=== PATIENT | female | born 1955 | race Two or more races ===

== ENCOUNTER 2016-11-16 08:59 | Outpatient (CLI) | payer MEDICAID ==
[2016-11-16] MEDS ORDERED: FLUMAZENIL 0.5 MG/5 ML MDV IVP ONE (09:07)
[2016-11-16] MEDS ORDERED: fentaNYL 100 MCG/2 ML INJ ONE (09:07)
[2016-11-16] MEDS ORDERED: NALOXONE HCL 0.4 MG/ML INJ ONE (09:07)
[2016-11-16] MEDS ORDERED: MIDAZOLAM 2 MG/2 ML VIAL ONE (09:08)
[2016-11-16] MEDS ORDERED: NA BICARBONATE 50 MEQ/50 ML VIAL ONE (09:12)
[2016-11-16] MEDS ORDERED: LIDOCAINE 1% 30 ML SDV ONE (09:13)
[2016-11-16] MEDS ORDERED: oxyCODONE IR 5 MG TAB PO PRN (11:18)
[2016-11-16] MEDS ORDERED: ONDANSETRON 4 MG/2 ML VIAL IVP PRN (11:18)
== END 2016-11-16 14:15 | disposition home or self-care (01) ==
LOC: FIMAGING 08:59
PROVIDERS: ATTEND Internal Medicine
PROC: 0FB13ZX Excision of Right Lobe Liver, Percutaneous Approach, Diagnostic (ICD-10-PCS; principal; 2016-11-16 11:07)
DX: K73.9 Chronic hepatitis, unspecified (principal); K80.20 Calculus of gallbladder without cholecystitis without obstruction; Z87.891 Personal history of nicotine dependence
CPT/HCPCS: J2250; J2310; J3010

== ENCOUNTER 2017-04-16 10:20 | Day surgery (SDC) | payer MEDICAID ==
--- NOTE | 2017-04-14 09:55 | GHP ---
[f rep st] PREOP HISTORY AND PHYSICAL DATE OF ADMISSION: 04/16/2017 PREOP DIAGNOSIS: Left anterior shoulder mass. HISTORY OF PRESENT ILLNESS: Beverly Delong is a 62-year-old woman who presented to the clinic with a left shoulder mass in 2014. She chose not to pursue excision at that time. The mass on her left a nterior shoulder is bothersome, more so with movement, but does not cause severe pain. She denies n umbness or tingling of her left upper extremity. She denies any decreased strength or impedement in range of motion. She had an ultrasound performed on 02/08/2015, which revealed an anterior left sh oulder mass measuring 4 x 2 cm. An MRI performed on 05/27/2015 showed the lipomatous mass intimatel y associated with the pectoralis muscle. Short head of the biceps and anterior medial aspect of the deltoid measuring 8.7 x 4.5 x 2.9 cm. The mass is becoming increasingly more bothersome, and she d esires excision at this time. PAST MEDICAL HISTORY: Primary biliary cirrhosis, hypothyroidism. PAST SURGICAL HISTORY: None. MEDICATIONS: None. ALLERGIES: Latex. SOCIAL HISTORY: She is a massage therapist. She is , with 2 children. She denies tobacco, alcohol or recreational drug use. FAMILY HISTORY: She reports a family history of hyperlipidemia, heart disease and hypertension. REVIEW OF SYSTEMS: 10-point review of systems is negative aside from the HPI. PHYSICAL EXAMINATION: GENERAL: Well-developed, well-nourished, woman in no acute distress. HEENT: Normocephalic, atraumatic. No hearing deficits. Pupils equal and round. No scleral icterus. Mu cous membranes moist. NECK: Trachea midline. RESPIRATORY: Clear to auscultation bilaterally. No increased work of breathing. CARDIOVASCULAR: Regular rate and rhythm. No peripheral edema. MUSC ULOSKELETAL: Normal gait. Normal nails. Firm, nonmobile mass of left anterior shoulder near axill a, nontender to palpation, 5/5 strength of left upper extremity, full range of motion. Neurovascula rly intact. SKIN: Warm and dry. PSYCH: Mood and affect normal. NEURO: Grossly intact. IMPRESSION AND PLAN: Beverly Delong is a 62-year-old woman with a left anterior shoulder mass, likel y lipoma. She desires excisional biopsy. We discussed risks of surgery, including but not limited to, heart attack, stroke, blood clots or . We discussed risks of infection, bleeding, recurren ce, damage to surrounding structures, or need for additional procedures. She understands the risks and would like to proceed. We anticipate this to be an outpatient procedure. She was additionally seen by Dr. Marla Monreal, who agrees with the above impression and plan. /[id number]/MODL
--- NOTE | 2017-04-15 19:19 | PDANEPAE ---
ANE History of Present Illness 62 year old female w/ PMHx of Primary Biliary Cirrhosis and hypothyroidism presents for excision of left shoulder mass. ANE Past Medical History - Cardiovascular History Hx Hypertension: No Hx Arrhythmias: No Hx Chest Pain: No Hx Coronary Artery / Peripheral Vascular Disease: No Hx CHF / Valvular Disease: No Hx Palpitations: No - Pulmonary History Hx COPD: No Hx Asthma/Reactive Airway Disease: No Hx Recent Upper Respiratory Infection: No Hx Oxygen in Use at Home: No Hx Sleep Apnea: Yes Sleep Apnea Screening Result - Last Documented: Positive - Neurologic History Hx Cerebrovascular Accident: No Hx Seizures: No Hx Dementia: No - Endocrine History Hx Diabetes: No Hypothyroid: Yes - Renal History Hx Renal Disorders: No - Liver History Hx Hepatic Disorders: Yes Hepatic History Comment: PRIMARY BILIARY CHOLANGITIS. GALL STONES - Neurological & Psychiatric Hx Hx Neurological and Psychiatric Disorders: No - Cancer History Hx Cancer: No - Congenital Disorder History Hx Congenital Disorders: No - GI History Hx Gastrointestinal Disorders: No Gastrointestinal History Comment: constipation - Other Health History Other Health History: NEG - Chronic Pain History Chronic Pain: No - Surgical History Prior Surgeries: LIVER BX. tubal ligation,. colonoscopy ANE Review of Systems - Exercise capacity METS (RN): 4 METS ANE Patient History - Allergies Allergies/Adverse Reactions: amoxicillin Allergy (Verified 04/16/17 11:25) latex Allergy (Verified 11/11/16 16:22) Penicillins Allergy (Verified 11/11/16 16:21) acetaminophen [From Tylenol] Adverse Reaction (Verified 04/16/17 11:26) ibuprofen Adverse Reaction (Verified 04/16/17 11:26) - Home Medications Home Medications: [place] Thyroid 04/08/17 [Last Taken 04/16/17 08:00] Herbals/Supplements -Info Only 04/08/17 [Last Taken 04/08/17] Ursodiol 04/08/17 [Last Taken 04/15/17] - Smoking Hx Smoking Status: Former smoker ANE Labs/Vital Signs - Vital Signs Height: 154.94 cm Weight: 68.039 kg ANE Physical Exam - Airway Mallampati Score: Class 2 Mouth exam: normal dental/mouth exam, dentures - Pulmonary Pulmonary: no respiratory distress - Cardiovascular Cardiovascular: regular rate and rhythym - ASA Status ASA Status: II
[2017-04-16] MEDS ORDERED: ceFAZolin 2 GM/DEXTROSE 100 ML IV ONE ×2 (10:41→11:30)
[2017-04-16] MEDS ORDERED: LR 1,000 ML IV ONE (10:59)
--- NOTE | 2017-04-16 13:07 | PDHPUP ---
History & Physical Update H&P update statement: This history and physical update is based on an assessment of the patient which was completed after admission or registration (within 24 hours), but prior to the surgery/procedure. H&P update: H&P reviewed & patient examined, no change in patient's condition since H&P completed
[2017-04-16] MEDS ORDERED: BUPIVACAINE 0.5% 30 ML SDV ONE (13:28)
[2017-04-16] MEDS ORDERED: MIDAZOLAM 2 MG/2 ML VIAL ONE (13:39)
[2017-04-16] MEDS ORDERED: MIDAZOLAM 2 MG/2 ML VIAL IVP ONE (13:41)
[2017-04-16] MEDS ORDERED: fentaNYL 100 MCG/2 ML INJ ONE ×2 (13:44→15:03)
[2017-04-16] MEDS ORDERED: PROPOFOL 200 MG/20 ML VIAL ONE (13:44)
[2017-04-16] MEDS ORDERED: LIDOCAINE 2% 100 MG/5 ML SYR ONE (13:45)
[2017-04-16] MEDS ORDERED: ROCURONIUM 50 MG/5 ML VIAL ONE (13:45)
--- NOTE | 2017-04-16 14:46 | POSTOPPROG ---
Post Op Note Date of Operation: 04/16/17 Surgeon: Marla Monreal Rn Referral: nancy Anesthesiologist: magui Anesthesia: GET(General Endotracheal) Pre-op Diagnosis: L shoulder mass Post-op Diagnosis: same Indication: 62yo F with painful growing L shoulder mass Procedure: excisional bx left shoulder mass Findings: lipomatous mass, intramuscular Inf/Abcess present in the surg proc area at time of surgery?: No Depth: Deep Incisional (Fascial) EBL: Minimal Complications: none immediately postoperatively
[2017-04-16 14:54] VITALS: PULSE 59; TEMP 97.7
[2017-04-16] MEDS ORDERED: NALOXONE HCL 0.4 MG/ML INJ IVP PRN (15:01)
[2017-04-16] MEDS ORDERED: ONDANSETRON 4 MG/2 ML VIAL IVP PRN (15:01)
[2017-04-16] MEDS ORDERED: LR 500 ML IV PRN (15:01)
[2017-04-16] MEDS: fentaNYL 100 MCG/2 ML INJ IVP PRN ×2 (15:16→16:21)
--- NOTE | 2017-04-16 15:27 | POSTANESTH ---
Post Anesthetic Evaluation Respiratory Status: Normal, Stable Level of Consciousness/Mental Status: Can Participate in Eval Pain Control: Adequate, Prn Tx Ordered Nausea/Vomiting Control: Adequate, Prn Tx Ordered
[2017-04-16 16:47] VITALS: RESP 16; O2SAT 93
[2017-04-16 17:43] VITALS: BP 81/61
--- NOTE | 2017-04-17 08:17 | GOP ---
[f rep st] OPERATIVE REPORT DATE OF OPERATION: 04/16/2017 SURGEON: Marla Monreal MD WATCH PARTS INSPECTOR: Irene Francisco, EL ANESTHESIA: General. ANESTHESIOLOGIST: Nelson Barahona MD PREOPERATIVE DIAGNOSIS: Left shoulder mass. POSTOPERATIVE DIAGNOSIS: Left shoulder mass. PROCEDURE PERFORMED: Excision of left intramuscular shoulder mass. FINDINGS: Lipomatosis mass that is intramuscular. SPECIMENS: To Pathology. ESTIMATED BLOOD LOSS: Minimal. INDICATIONS: The patient is a 62-year-old woman who has had a painful growing left shoulder mass. Preoperative imaging was obtained that showed it to be consistent with a lipoma. DESCRIPTION OF PROCEDURE: The patient was brought into the operating room, placed supine on the tab le, and general anesthesia was administered. Her left shoulder was prepped and draped in the usual sterile fashion. I made an incision over the mass. I deepened my dissection down through the subcu taneous tissues and I was able to palpate the mass and ultimately encountered it. It was intramuscu lar. I was able to excise it from the surrounding muscle. I sutured the deep layer closed with 3-0 Vicryl. I closed skin with 3-0 Vicryl, followed by 4-0 Monocryl. Mastisol, Steri-Strips, and a st erile dressing were applied. She was awakened in the operating room, extubated, transferred to PACU in stable condition. /[id number]/MODL
== END 2017-04-16 17:24 | disposition home or self-care (01) ==
LOC: FSGY 10:20
PROVIDERS: ATTEND Surgery
PROC: 0KB60ZX Excision of Left Shoulder Muscle, Open Approach, Diagnostic (ICD-10-PCS; principal; 2017-04-16 13:00)
DX: R22.32 Localized swelling, mass and lump, left upper limb (principal)
CPT/HCPCS: J0690; J2001; J2250; J2704; J3010

== ENCOUNTER → 2017-12-31 | Outpatient (CLI) | payer MEDICAID | LOC: FIMAGING 15:54 | PROVIDERS: ATTEND Family Medicine | DX: Z12.31 Encounter for screening mammogram for malignant neoplasm of breast (principal) ==

== ENCOUNTER → 2019-03-13 | Outpatient (CLI) | payer MEDICAID | LOC: CIMAGING 14:16 ==